=== PATIENT | female | born 1950 | race Caucasian/White ===

== ENCOUNTER → 2017-12-11 | Outpatient (CLI) | payer MEDICARE, OTHER ==
[~2017-12-11] MED LIST: IOHEXOL 180 MG/ML 10 ML VIAL.; methylPREDNISolone ACETATE 40 MG/ML VIAL.; methylPREDNISolone ACETATE 80 MG/ML VIAL.
== END ==
LOC: PNCL 09:48
DX: M51.16 Intervertebral disc disorders with radiculopathy, lumbar region (principal); E11.9 Type 2 diabetes mellitus without complications; M19.90 Unspecified osteoarthritis, unspecified site; M81.8 Other osteoporosis without current pathological fracture; Z87.891 Personal history of nicotine dependence; Z90.49 Acquired absence of other specified parts of digestive tract; Z98.890 Other specified postprocedural states
CPT/HCPCS: 62323; J1030; J1040; Q9965

== ENCOUNTER 2020-04-21 21:38 | Inpatient (IN) | payer MEDICARE, OTHER ==
[~2020-04-21] VITALS: Ht 162.6 cm; Wt 60.7 kg
[2020-04-21 21:30] VITALS: BP 144/68
[~2020-04-21 21:38] MED LIST changes: +ALPR0.5T PO; +ASPI-482 PO; +CALCIUM; +CYCL1DRO EACHEYE; +DEXA10VI8 IJ; +DULO30CA2 PO; +GABA-585 PO; +GLIP10TA13 PO; +GLUC1KIT IJ; +HYDR5TAB PO; -IOHEXOL 180 MG/ML 10 ML VIAL.; +LISI2.5T PO; +MAGN400C PO; +METF10007 PO; +MIDO5TAB4 PO; +MULT-18 PO; +ONDA4TAB12 PO; +SITA100T PO; +VIT D; +florinef; -methylPREDNISolone ACETATE 40 MG/ML VIAL.; -methylPREDNISolone ACETATE 80 MG/ML VIAL.
--- NOTE | 2020-04-21 22:00 | NUR ---
The patient, KATY ERNST, 69 y/o, F admitted by ANNALISA GROSS MD, was given written information regarding hospital policies, unit procedures and contact persons. nih completed. Valuables were checked and documented in emr. top and bottoms. pt called husbands to bring more items to her. lunchroom monitor applied and explained. lcrn
[2020-04-21] MEDS ORDERED: GLIP5TAB10 PO (22:45)
[2020-04-21 23:23] VITALS: BP 127/67
--- NOTE | 2020-04-22 01:59 | NUR ---
paged dr steinberg, pt is requesting her gabapentin and tylenow devyn xanax. her legs are killing her and she doest feel like she is in her own body she said.up set that meds werent ready when shearrived that other hospitals do that. explained pmc process. so therby calling what she needs now. lcrn
[2020-04-22] MEDS ORDERED: ASPIRIN RECTAL 300 MG SUPP. PR PRN (02:00)
[2020-04-22] MEDS ORDERED: DEXTROSE 50% 25 GM / 50ML DISP.SYRIN. IV PRN (02:00)
[2020-04-22] MEDS ORDERED: ACETAMINOPHEN 650 MG SUPP.RECT. PR PRN (02:00)
[2020-04-22] MEDS ORDERED: ALPRAZolam 0.5 MG TABLET PO PRN (02:00)
[2020-04-22] MEDS ORDERED: BISACODYL 5 MG TABLET.DR. PO PRN (02:00)
[2020-04-22] MEDS ORDERED: LABETALOL 20 MG/4 ML DISP.SYRIN. IVP PRN (02:00)
[2020-04-22] MEDS ORDERED: MAGNESIUM HYDROXIDE 2,400 MG/30 ML ORAL.SUSP. PO PRN (02:00)
--- NOTE | 2020-04-22 02:02 | NUR ---
pt s is bring in all her med bottles tomorrow due to pt cant remember all her meds or her doses. lcrn
[2020-04-22] MEDS ORDERED: FLUD0.1T PO (02:03)
[2020-04-22] MEDS ORDERED: HYDR5TAB11 PO (02:03)
[2020-04-22] MEDS ORDERED: GABAPENTIN 100 MG CAPSULE. PO ONE ×2 (02:30→03:00)
[2020-04-22] MEDS ORDERED: ALPRAZolam 0.25 MG TABLET PO ONE ×2 (02:30→03:00)
[2020-04-22] MEDS ORDERED: ACETAMINOPHEN 325 MG TABLET. PO ONE (02:30)
[2020-04-22] MEDS: ACETAMINOPHEN 325 MG TABLET. PO PRN ×2 (02:32→09:20)
[2020-04-22] MEDS: IV NORMAL SALINE 1000ML BAG 1,000 ML IV SCH ×3 (02:39→23:43)
--- NOTE | 2020-04-22 03:03 | NUR ---
pt received xanax 0.25+0.25 to =0.50 pt received neurotin 100 + 100 = 200mg marc assisted me with the confusion. there fore it isnt a scan err. lcrn
[2020-04-22 03:20] VITALS: BP 131/67
[2020-04-22 05:46] LABS: BASO # 0.1 x10^3/uL (0.0-0.2); BASO % 1 % (0-3); EOS # 0.3 x10^3/uL (0.0-0.7); EOS % 4 % (0-3); HEMATOCRIT 34.6 % (36.0-47.0); HEMOGLOBIN 11.3 g/dL (12.0-15.5); LYMPH % 25 % (24-48); MEAN CORPUSCULAR HEMOGLOBIN 28 pg (25-35); MEAN CORPUSCULAR HGB CONC 33 g/dL (31-37); MEAN CORPUSCULAR VOLUME 86 fL (79-100); MONO # 0.9 x10^3/uL (0.0-1.1); MONO % 11 % (0-9); NEUT # 4.9 x10^3/uL (1.8-7.7); NEUT % 60 % (31-73); PLATELET COUNT 354 x10^3/uL (140-400); RED BLOOD COUNT 4.02 x10^6/uL (3.50-5.40); RED CELL DISTRIBUTION WIDTH 14.9 % (11.5-14.5); WHITE BLOOD COUNT 8.2 x10^3/uL (4.0-11.0)
[2020-04-22 05:53] LABS: PROTHROMBIN TIME PATIENT 11.8 SEC (11.7-14.0)
[2020-04-22 06:09] LABS: ALBUMIN 2.9 g/dL (3.4-5.0); ALBUMIN/GLOBULIN RATIO 0.8 (1.0-1.7); CALCIUM 8.5 mg/dL (8.5-10.1); CHOLESTEROL/HDL RATIO 1.9; CREATININE 0.8 mg/dL (0.6-1.0); GFR 71.5; MAGNESIUM 1.7 mg/dL (1.8-2.4); PHOSPHORUS 4.3 mg/dL (2.6-4.7); POTASSIUM 3.5 mmol/L (3.5-5.1); TOTAL BILIRUBIN 0.2 mg/dL (0.2-1.0); TOTAL PROTEIN 6.7 g/dL (6.4-8.2)
[2020-04-22 07:00] VITALS: BP 119/61
[2020-04-22] MEDS ORDERED: INSULIN LISPRO 300 UNITS/3 ML VIAL. SQ SCH (07:30)
--- NOTE | 2020-04-22 08:12 | PDOC1 ---
History and Physical Date of Admission Date of Admission DATE: 04/22/20 TIME: 08:11 Identification/Chief Complaint Chief Complaint Left sided weakness Source Source: Patient History of Present Illness History of Present Illness Ms Hager is a 69-year-old female with PMH Pinal's disease, diabetes who presents with a chief complaint of weakness. Patient states on Thursday evening 04/18/2020 she developed left upper extremity weakness. 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 She states 04/20/2020 she began developing left lower extremity weakness. She states is been more difficult to walk. reports that prior to arrival the patient was found confused sitting down outside on a bench by her cousin and she did not know how she got there. He states that she is not acting like herself. She denies any history of stroke. She denies any chest pain or shortness of breath. She denies any vomiting. No recent hypoglycemia. denies any dysarthria, but she has had speech difficulties and has a cough sometimes after eating or drinking, which she feels is new. Denies any syncope or headaches. Denies any falls or head trauma. She does not take any blood thinners. She also notes that her left upper and lower extremity has decreased sensation to touch. On further review she and her note memory issues but is been progressive, they think this likely preceded Wednesdays event. He notes she frequently forgets conversations they have had as recently as 5 minutes ago. He feels as though she is acting like she is "drugged". On further review she notes frequently she has been having some urinary incontinence as well as fecal urgency, and with her memory issues and her bladder and bowel issues she has had less frequent social contact. She also notes an ongoing cough that is been bothering her for the past 3 months. She and her also noted insulin "allergy". When asked further about this she notes when she was hospitalized in [place] she received insulin and her blood glucose dropped to 13 and she was transferred to ICU. She did not experience any rash or hemodynamic instability, simply hypoglycemia. She was told by a physician at that time that she should "never take insulin again". Labs significant for NA 140, K3.5, CR 0.8, BUN 14, magnesium 1.7, WBC 8.2, Hb 11.3, platelets 354, troponin 0, albumin 2.9, LDL 37, TSH 0.762. EKG #1 with significant artifact. Repeat EKG consistent with normal sinus rhythm. Ventricular rate of 91 bpm. [place] normal. Intervals normal. Small Q waves in lead III and aVF. CT head shows mild small vessel ischemic change. CTA head and neck showed no large vessel occlusive disease, minimal plaque at the origin of the internal carotid arteries and cavernous segments of the internal carotid arteries bilaterally without significant stenosis. Chest x-ray with no acute process. Initial vital signs unremarkable. Notable blood glucose 354. She was given a full dose aspirin. Not a TPA candidate. Admitted for further care Past Medical History Endocrine: Diabetes Past Surgical History Past Surgical History: Cholecystectomy, Tonsillectomy, Other (Uretal stenting) Family History Family History: Diabetes, High Cholestrol, Hypertension Social History Smoke: Quit (2013) ALCOHOL: none Drugs: None Current Medications Current Medications Current Medications Sodium Chloride 1,000 ml @ 100 mls/hr Q10H IV Last administered on 04/22/20at 02:39; Start 04/22/20 at 02:00 Heparin Sodium (Porcine) (Heparin Sodium) 5,000 unit Q8HRS SQ ; Start 04/22/20 at 06:00 Labetalol HCl (Normodyne Iv Push) 10 mg PRN Q10MIN PRN IVP HYPERTENSION; Start 04/22/20 at 02:00 Atorvastatin Calcium (Lipitor) 80 mg HS PO ; Start 04/22/20 at 21:00 Acetaminophen (Tylenol) 650 mg PRN Q6HRS PRN PO TEMP > 100.4F Last administered on 04/22/20at 02:32; Start 04/22/20 at 02:00 Acetaminophen (Tylenol Supp) 650 mg PRN Q4HRS PRN OK TEMP > 100.4F; Start 04/22/20 at 02:00 Magnesium Hydroxide (Milk Of Magnesia) 2,400 mg PRN DAILY PRN PO CONSTIPATION; Start 04/22/20 at 02:00 Bisacodyl (Dulcolax Tab) 10 mg PRN DAILY PRN PO CONSTIPATION; Start 04/22/20 at 02:00 Famotidine (Pepcid) 20 mg BID PO ; Start 04/22/20 at 09:00 Aspirin (Ecotrin) 325 mg DAILYWBKFT PO ; Start 04/22/20 at 08:00 Aspirin (Aspirin Rectal Supp) 300 mg PRN DAILY PRN OK IF UNABLE TO TAKE PO; Start 04/22/20 at 02:00 Insulin Human Lispro (HumaLOG) 0-9 UNITS TIDACHC SQ ; Start 04/22/20 at 07:30; Stop 04/22/20 at 02:11; Status DC Dextrose (Dextrose 50%-Water Syringe) 12.5 gm PRN Q15MIN PRN IV SEE COMMENTS; Start 04/22/20 at 02:00 Alprazolam (Xanax) 0.5 mg PRN TID PRN PO ANXIETY Last administered on 04/22/20at 02:32; Start 04/22/20 at 02:00 Cyclosporine (Restasis) 1 drop BID OU ; Start 04/22/20 at 09:00 Duloxetine HCl (Cymbalta) 30 mg BID PO ; Start 04/22/20 at 09:00 Gabapentin (Neurontin) 200 mg TID PO Last administered on 04/22/20at 02:32; Start 04/22/20 at 09:00 Glipizide (Glucotrol) 5 mg BIDWMEALS PO ; Start 04/22/20 at 08:00 Lisinopril (Prinivil) 2.5 mg DAILY PO ; Start 04/22/20 at 09:00 Magnesium Oxide (Magnesium Oxide) 400 mg BID PO ; Start 04/22/20 at 09:00 Multivitamins (Thera M Plus) 1 tab DAILY PO ; Start 04/22/20 at 09:00 Linagliptin (Tradjenta) 5 mg DAILY PO ; Start 04/22/20 at 09:00 Fludrocortisone Acetate (Florinef) 0.1 mg DAILY PO ; Start 04/22/20 at 09:00 Hydrocortisone (Cortef) 5 mg DAILY PO ; Start 04/22/20 at 09:00 Gabapentin (Neurontin) 100 mg 1X ONCE PO Last administered on 04/22/20at 02:30; Start 04/22/20 at 02:30; Stop 04/22/20 at 02:31; Status DC Acetaminophen (Tylenol) 650 mg 1X ONCE PO Last administered on 04/22/20at 02:30; Start 04/22/20 at 02:30; Stop 04/22/20 at 02:31; Status DC Alprazolam (Xanax) 0.25 mg 1X ONCE PO Last administered on 04/22/20at 02:30; Start 04/22/20 at 02:30; Stop 04/22/20 at 02:31; Status DC Gabapentin (Neurontin) 100 mg 1X ONCE PO Last administered on 04/22/20at 03:00; Start 04/22/20 at 03:00; Stop 04/22/20 at 03:01; Status DC Alprazolam (Xanax) 0.25 mg 1X ONCE PO Last administered on 04/22/20at 03:00; Start 04/22/20 at 03:00; Stop 04/22/20 at 03:01; Status DC Magnesium Sulfate 50 ml @ 25 mls/hr 1X ONCE IV ; Start 04/22/20 at 08:15; Stop 04/22/20 at 10:14; Status UNV Potassium Chloride (Klor-Con) 20 meq 1X ONCE PO ; Start 04/22/20 at 08:15; Stop 04/22/20 at 08:16; Status UNV Active Scripts Active Reported Fludrocortisone Acetate 0.1 Mg Tablet 0.1 Mg PO DAILY 90 Days Hydrocortisone 5 Mg Tablet 5 Mg PO DAILY 90 Days Glipizide 5 Mg Tablet 1 Tab PO BID Magnesium (Magnesium Oxide) 400 Mg Capsule 1 Cap PO BID Lisinopril 2.5 Mg Tablet 1 Tab PO DAILY Gabapentin (Gabapentin) 100 Mg Capsule 200 Mg PO TID Cymbalta (Duloxetine Hcl) 30 Mg Capsule.dr 30 Mg PO BID Restasis (Cyclosporine) 1 Each Droperette 1 Drop EACHEYE BID [Vit D + Calcium] Daily Vitamin (Multivitamin) 1 Each Tablet 1 Each PO DAILY Metformin Hcl 1,000 Mg Tablet 1,000 Mg PO BID Januvia (Sitagliptin Phosphate) 100 Mg Tablet 100 Mg PO DAILY Midodrine Hcl 5 Mg Tablet 5 Mg PO BID [florinef] DAILY Glucagon Emergency Kit (Glucagon,Human Recombinant) 1 Mg Kit 1 Mg IJ PRN Xanax (Alprazolam) 0.5 Mg Tablet 0.5 Mg PO TID PRN PRN Allergies Allergies: Coded Allergies: Penicillins (Verified Allergy, Intermediate, 04/22/20) shots only Uncoded Allergies: insulin (Adverse Reaction, Unknown, 04/22/20) ROS General: YES: Fatigue, Malaise; No: Chills, Night Sweats, Appetite, Other PSYCHOLOGICAL ROS: YES: Anxiety, Behavioral Disorder, Concentration difficultie , Disorientation, Memory difficulties; No: Decreased libido, Depression, Hallucinations, Hostility, Irritablity, Mood Swings, Obsessive thoughts, Physical abuse, Sexual abuse, Sleep disturbances, Suicidal ideation, Other Eyes: No Blurry vision, No Decreased vision, No Double vision, No Dry eyes, No Excessive tearing, No Eye Pain, No Itchy Eyes, No Loss of vision, No Photophobia, No Scotomata, No Uses contacts, No Uses glasses, No Other HEENT: No: Heacaches, Visual Changes, Hearing change, Nasal congestion, Nasal discharge, Oral lesions, Sinus pain, Sore Throat, Epistaxis, Sneezing, Snoring, Tinnitus, Vertigo, Vocal changes, Other ALLERGY AND IMMUNOLOGY: No: Hives, Insect Bite Sensitivity, Itchy/Watery Eyes, Nasal Congestion, Post Nasal Drip, Seasonal Allergies, Other Hematological and Lymphatic: No: Bleeding Problems, Blood Clots, Blood Transfusions, Brusing, Night Sweats, Pallor, Swollen Lymph Nodes, Other ENDOCRINE: No: Breast Changes, Galactorrhea, Hair Pattern Changes, Hot Flashes, Malaise/lethargy, Mood Swings, Palpitations, Polydipsia/polyuria, Skin Changes, Temperature Intolerance, Unexpected Weight Changes, Other Breast: No New/Changing Breast Lumps, No Nipple changes, No Nipple discharge, No Other Respiratory: YES: Cough; No: Hemoptysis, Orthopnea, Pleuritic Pain, Shortness of breath, SOB with excertion, Sputum Changes, Stridor, Tachypnea, Wheezing, Other Cardiovascular: No Chest Pain, No Palpitations, No Orthopnea, No Paroxysmal Noc. Dyspnea, No Edema, No Lt Headedness, No Other Gastrointestinal: No Nausea, No Vomiting, No Abdominal Pain, No Diarrhea, No Constipation, No Melena, No Hematochezia, No Other Genitourinary: No Dysuria, No Frequency, No Incontinence, No Hematuria, No Retention, No Discharge, No Urgency, No Pain, No Flank Pain, No Other, No , No , No , No , No , No , No Musculoskeletal: Yes Gait Disturbance, Yes Muscular Weakness; No Joint Pain, No Joint Stiffness, No Joint Swelling, No Muscle Pain, No Pain In:, No Swelling In:, No Other Neurological: Yes Gait Disturbance, Yes Impaired Coord/balance, Yes Memory Loss , Yes Numbness/Tingling, Yes Speech Problems; No Behavorial Changes, No Bowel/Bladder ControlChng, No Confusion, No Dizzin ess, No Headaches, No Seizures, No Tremors, No Visual Changes, No Weakness, No Other Skin: No Dry Skin, No Eczema, No Hair Changes, No Lumps, No Mole Changes, No Mottling, No Nail Changes, No Pruritus, No Rash, No Skin Lesion Changes, No Other, No Acne Physical Exam General: Alert, Cooperative, No acute distress HEENT: PERRLA Lungs: Clear to auscultation, Normal air movement Heart: S1S2, RRR, no thrills, no rubs, no gallops, no murmurs Abdomen: Normal bowel sounds, Soft, No tenderness, No hepatosplenomegaly, No masses Rectal Exam: not examined Extremities: No clubbing, No cyanosis, No edema, Normal pulses, No tenderness/swelling Skin: No rashes, No breakdown, No significant lesion Neuro: Normal speech, Normal tone, Cranial nerves 3-12 NL, Reflexes 2+, Other (Neurologic: Alert with intact cognitive function. No aphasia, dysarthria, or neglect. GCS 15. Pupils 3 mm briskly reactive b/l. No APD present. Cranial nerves 2-12 grossly intact; no facial asymmetry present, tongue midline, shoulder shrugging less on the left. Strength 3/5 on the left upper extremity and 4 out of 5 on the left lower extremity. Plus 5 out of 5 in the right upper and right lower extremities. Light touch sensation decreased in the left upper extremity. Cerebellar testing appropriate without evidence of dysdia dochokinesia. DTR's 2+ in all 4 extremities. Slight pronator drift on the left. Gait unsteady) Psych/Mental Status: Mental status NL, Mood NL Vitals Vitals Vital Signs Date Time Temp Pulse Resp B/P (MAP) Pulse Ox O2 Delivery O2 Flow Rate FiO2 04/22/20 07:00 97.6 89 18 119/61 (80) 93 Room Air 97.6 Labs Labs Laboratory Tests Test 04/22/20 04:35 04/22/20 07:29 White Blood Count 8.2 x10^3/uL (4.0-11.0) Red Blood Count 4.02 x10^6/uL (3.50-5.40) Hemoglobin 11.3 g/dL (12.0-15.5) Hematocrit 34.6 % (36.0-47.0) Mean Corpuscular Volume 86 fL (79-100) Mean Corpuscular Hemoglobin 28 pg (25-35) Mean Corpuscular Hemoglobin Concent 33 g/dL (31-37) Red Cell Distribution Width 14.9 % (11.5-14.5) Platelet Count 354 x10^3/uL (140-400) Neutrophils (%) (Auto) 60 % (31-73) Lymphocytes (%) (Auto) 25 % (24-48) Monocytes (%) (Auto) 11 % (0-9) Eosinophils (%) (Auto) 4 % (0-3) Basophils (%) (Auto) 1 % (0-3) Neutrophils # (Auto) 4.9 x10^3/uL (1.8-7.7) Lymphocytes # (Auto) 2.0 x10^3/uL (1.0-4.8) Monocytes # (Auto) 0.9 x10^3/uL (0.0-1.1) Eosinophils # (Auto) 0.3 x10^3/uL (0.0-0.7) Basophils # (Auto) 0.1 x10^3/uL (0.0-0.2) Prothrombin Time 11.8 SEC (11.7-14.0) Prothromb Time International Ratio 0.9 (0.8-1.1) Sodium Level 140 mmol/L (136-145) Potassium Level 3.5 mmol/L (3.5-5.1) Chloride Level 103 mmol/L (98-107) Carbon Dioxide Level 30 mmol/L (21-32) Anion Gap 7 (6-14) Blood Urea Nitrogen 14 mg/dL (7-20) Creatinine 0.8 mg/dL (0.6-1.0) Estimated GFR (Cockcroft-Gault) 71.5 BUN/Creatinine Ratio 18 (6-20) Glucose Level 94 mg/dL (70-99) Calcium Level 8.5 mg/dL (8.5-10.1) Phosphorus Level 4.3 mg/dL (2.6-4.7) Magnesium Level 1.7 mg/dL (1.8-2.4) Total Bilirubin 0.2 mg/dL (0.2-1.0) Aspartate Amino Transf (AST/SGOT) 13 U/L (15-37) Alanine Aminotransferase (ALT/SGPT) 15 U/L (14-59) Alkaline Phosphatase 69 U/L (46-116) Troponin I Quantitative < 0.017 ng/mL (0.000-0.055) Total Protein 6.7 g/dL (6.4-8.2) Albumin 2.9 g/dL (3.4-5.0) Albumin/Globulin Ratio 0.8 (1.0-1.7) Triglycerides Level 135 mg/dL (0-150) Cholesterol Level 132 mg/dL (0-200) LDL Cholesterol, Calculated 37 mg/dL (0-100) VLDL Cholesterol, Calculated 27 mg/dL (0-40) Non-HDL Cholesterol Calculated 64 mg/dL (0-129) HDL Cholesterol 68 mg/dL (40-60) Cholesterol/HDL Ratio 1.9 Thyroid Stimulating Hormone (TSH) 0.762 uIU/mL (0.358-3.74) Glucose (Fingerstick) 89 mg/dL (70-99) Laboratory Tests Test 04/22/20 04:35 04/22/20 07:29 White Blood Count 8.2 x10^3/uL (4.0-11.0) Red Blood Count 4.02 x10^6/uL (3.50-5.40) Hemoglobin 11.3 g/dL (12.0-15.5) Hematocrit 34.6 % (36.0-47.0) Mean Corpuscular Volume 86 fL (79-100) Mean Corpuscular Hemoglobin 28 pg (25-35) Mean Corpuscular Hemoglobin Concent 33 g/dL (31-37) Red Cell Distribution Width 14.9 % (11.5-14.5) Platelet Count 354 x10^3/uL (140-400) Neutrophils (%) (Auto) 60 % (31-73) Lymphocytes (%) (Auto) 25 % (24-48) Monocytes (%) (Auto) 11 % (0-9) Eosinophils (%) (Auto) 4 % (0-3) Basophils (%) (Auto) 1 % (0-3) Neutrophils # (Auto) 4.9 x10^3/uL (1.8-7.7) Lymphocytes # (Auto) 2.0 x10^3/uL (1.0-4.8) Monocytes # (Auto) 0.9 x10^3/uL (0.0-1.1) Eosinophils # (Auto) 0.3 x10^3/uL (0.0-0.7) Basophils # (Auto) 0.1 x10^3/uL (0.0-0.2) Prothrombin Time 11.8 SEC (11.7-14.0) Prothromb Time International Ratio 0.9 (0.8-1.1) Sodium Level 140 mmol/L (136-145) Potassium Level 3.5 mmol/L (3.5-5.1) Chloride Level 103 mmol/L (98-107) Carbon Dioxide Level 30 mmol/L (21-32) Anion Gap 7 (6-14) Blood Urea Nitrogen 14 mg/dL (7-20) Creatinine 0.8 mg/dL (0.6-1.0) Estimated GFR (Cockcroft-Gault) 71.5 BUN/Creatinine Ratio 18 (6-20) Glucose Level 94 mg/dL (70-99) Calcium Level 8.5 mg/dL (8.5-10.1) Phosphorus Level 4.3 mg/dL (2.6-4.7) Magnesium Level 1.7 mg/dL (1.8-2.4) Total Bilirubin 0.2 mg/dL (0.2-1.0) Aspartate Amino Transf (AST/SGOT) 13 U/L (15-37) Alanine Aminotransferase (ALT/SGPT) 15 U/L (14-59) Alkaline Phosphatase 69 U/L (46-116) Troponin I Quantitative < 0.017 ng/mL (0.000-0.055) Total Protein 6.7 g/dL (6.4-8.2) Albumin 2.9 g/dL (3.4-5.0) Albumin/Globulin Ratio 0.8 (1.0-1.7) Triglycerides Level 135 mg/dL (0-150) Cholesterol Level 132 mg/dL (0-200) LDL Cholesterol, Calculated 37 mg/dL (0-100) VLDL Cholesterol, Calculated 27 mg/dL (0-40) Non-HDL Cholesterol Calculated 64 mg/dL (0-129) HDL Cholesterol 68 mg/dL (40-60) Cholesterol/HDL Ratio 1.9 Thyroid Stimulating Hormone (TSH) 0.762 uIU/mL (0.358-3.74) Glucose (Fingerstick) 89 mg/dL (70-99) Images Images CT Head w/o contrast: No focal parenchymal lesion or hemorrhage is identified. There is no midline shift or sulcal effacement. Patchy hypodensity in the periventricular white matter. Zuleta-white distinction is preserved. The ventricular system is within normal limits without compression hydrocephalus. The basal cisterns are well maintained. The visualized portions of the paranasal sinuses and mastoid air cells are well- pneumatized. No acute fractures. IMPRESSION: Mild small vessel ischemic change, technically age indeterminate without prior imaging. CTA head and neck CTA neck: Visualized portion of thoracic aorta are unremarkable. Standard three-vessel aortic arch anatomy. Right common carotid artery is patent without evidence of stenosis, occlusion or aneurysm. Mild calcified plaque at the origin of the right internal carotid artery without significant stenosis. Left common carotid artery is patent without evidence of stenosis, occlusion or aneurysm. Minimal plaque at the origin of the left internal carotid artery without significant stenosis. Right vertebral artery is patent to basilar confluence without evidence of stenosis, occlusion or aneurysm. Left vertebral artery is patent to basilar confluence without evidence of stenosis, occlusion or aneurysm. Visualized soft tissues are unremarkable. CTA HEAD: Minimal plaque at the origin of the right internal carotid artery without significant stenosis. Right MCA is patent. Right HIRAL is patent. Minimal plaque at the cavernous segment of the left internal carotid artery without significant stenosis. Left MCA is patent. Left HIRAL is patent. Basilar artery is patent without evidence of stenosis, occlusion or aneurysm. cable armorer are patent bilaterally. origin of the right PARKING CONTROL OFFICER. IMPRESSION: 1. No large vessel occlusion. 2. Minimal plaque at the origin of the internal carotid arteries and cavernous segments of the internal carotid arteries bilaterally without significant stenosis. VTE Prophylaxis Ordered VTE Prophylaxis Devices: No VTE Pharmacological Prophylaxi: Yes Assessment/Plan Assessment/Plan A/P: Left-sided weakness -exhibit signs and symptoms of acute right frontoparietal CVA. Will order MRI. Consult neurology. PT OT [employer] eval. ASA and high intensity statin. Goal glucose less than 140 mg/Raghav, check A1c. Control BP. Tele to observe for arrhythmia. Uncontrolled diabetes mellitus - Refuses insulin therapy. Hold metformin for recent contrast administration. Can continue glipizide. Acute encephalopathy - possibly with underlying mild cognitive impairment. 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
[2020-04-22] MEDS ORDERED: POTASSIUM CHLORIDE 20 MEQ TABLET.ER. PO ONE (08:15)
[2020-04-22] MEDS ORDERED: MAGNESIUM SULFATE 2GM 50 ML IV ONE (08:15)
[2020-04-22] MEDS: HEPARIN for SUB-Q USE 5,000 UNIT/ML VIAL. SQ SCH ×3 (08:42→21:24)
[2020-04-22] MEDS ORDERED: LISINOPRIL 5 MG TABLET. PO SCH (09:00)
[2020-04-22] MEDS ORDERED: HYDROCORTISONE 10 MG TABLET PO SCH ×2 (09:00→21:00)
[2020-04-22] MEDS ORDERED: GABAPENTIN 100 MG CAPSULE. PO SCH (09:00)
[2020-04-22] MEDS: FLUDROCORTISONE 0.1 MG TABLET PO SCH (09:19)
[2020-04-22] MEDS: DULoxetine HCL 30 MG CAPSULE.DR PO SCH ×2 (09:20→20:29)
[2020-04-22] MEDS: ASPIRIN ENTERIC COATED 325 MG TABLET.DR. PO SCH (09:20)
[2020-04-22] MEDS: MULTIVITAMIN with MINERAL TABLET. PO SCH (09:20)
[2020-04-22] MEDS: glipiZIDE 5 MG TABLET PO SCH ×2 (09:20→17:14)
[2020-04-22] MEDS: FAMOTIDINE 20 MG TABLET. PO SCH ×2 (09:20→20:29)
[2020-04-22] MEDS: MAGNESIUM OXIDE 400 MG TABLET PO SCH ×2 (09:21→20:29)
[2020-04-22] MEDS: LINAGLIPTIN 5 MG TABLET PO SCH (09:21)
[2020-04-22] MEDS: cycloSPORINE 0.05% OPHTH DROPERETTE. OU SCH ×2 (09:21→21:19)
[2020-04-22 10:52] VITALS: BP 118/64
[2020-04-22] MEDS ORDERED: ALPRAZolam 0.25 MG TABLET PO PRN (11:15)
[2020-04-22 15:00] VITALS: BP 141/61
[2020-04-22 19:35] VITALS: BP 145/76
--- NOTE | 2020-04-22 19:54 | PDOC2 ---
CONSULT Date of Consult Date of Consult DATE: 04/22/20 TIME: 19:52 Reason for Consult Reason for Consult: left side weakness History of Present Illness Reason for Visit: This patient is 71-year-old woman with past medical history of multiple medical problems patient presented with not feeling well for over 3-day duration patient was having some left-sided weakness she was having difficulty with gait and balance. Patient was also having some episode of confusion she has underlying memory problems. Patient currently denies any complaint of difficulty speaking tingling numbness on the face. Patient denies any complaint of chest pain shortness of breath fever. Patient was transferred from outside facility for further workup. Past Medical History Endocrine: Diabetes Past Surgical History Past Surgical History: Cholecystectomy, Tonsillectomy, Other (Uretal stenting) Family History Family History: Diabetes, High Cholestrol, Hypertension Social History Quit (2013) ALCOHOL: none Drugs: None Current Medications Current Medications Current Medications Sodium Chloride 1,000 ml @ 100 mls/hr Q10H IV Last administered on 04/22/20at 14:46; Start 04/22/20 at 02:00 Heparin Sodium (Porcine) (Heparin Sodium) 5,000 unit Q8HRS SQ Last administered on 04/22/20at 14:49; Start 04/22/20 at 06:00 Labetalol HCl (Normodyne Iv Push) 10 mg PRN Q10MIN PRN IVP HYPERTENSION; Start 04/22/20 at 02:00 Atorvastatin Calcium (Lipitor) 80 mg HS PO ; Start 04/22/20 at 21:00 Acetaminophen (Tylenol) 650 mg PRN Q6HRS PRN PO TEMP > 100.4F Last administered on 04/22/20at 09:20; Start 04/22/20 at 02:00 Acetaminophen (Tylenol Supp) 650 mg PRN Q4HRS PRN ME TEMP > 100.4F; Start 04/22/20 at 02:00 Magnesium Hydroxide (Milk Of Magnesia) 2,400 mg PRN DAILY PRN PO CONSTIPATION, 1st CHOICE; Start 04/22/20 at 02:00 Bisacodyl (Dulcolax Tab) 10 mg PRN DAILY PRN PO CONSTIPATION; Start 04/22/20 at 02:00 Famotidine (Pepcid) 20 mg BID PO Last administered on 04/22/20at 09:20; Start 04/22/20 at 09:00 Aspirin (Ecotrin) 325 mg DAILYWBKFT PO Last administered on 04/22/20at 09:20; Start 04/22/20 at 08:00 Aspirin (Aspirin Rectal Supp) 300 mg PRN DAILY PRN ME IF UNABLE TO TAKE PO; Start 04/22/20 at 02:00 Insulin Human Lispro (HumaLOG) 0-9 UNITS TIDACHC SQ ; Start 04/22/20 at 07:30; Stop 04/22/20 at 02:11; Status DC Dextrose (Dextrose 50%-Water Syringe) 12.5 gm PRN Q15MIN PRN IV SEE COMMENTS; Start 04/22/20 at 02:00 Alprazolam (Xanax) 0.5 mg PRN TID PRN PO ANXIETY Last administered on 04/22/20at 02:32; Start 04/22/20 at 02:00; Stop 04/22/20 at 11:09; Status DC Cyclosporine (Restasis) 1 drop BID OU Last administered on 04/22/20 09:21; Start 04/22/20 at 09:00 Duloxetine HCl (Cymbalta) 30 mg BID PO Last administered on 04/22/20 09:20; Start 04/22/20 at 09:00 Gabapentin (Neurontin) 200 mg TID PO Last administered on 04/22/20at 02:32; Start 04/22/20 at 09:00; Stop 04/22/20 at 11:09; Status DC Glipizide (Glucotrol) 5 mg BIDWMEALS PO Last administered on 04/22/20at 17:14; Start 04/22/20 at 08:00 Lisinopril (Prinivil) 2.5 mg DAILY PO Last administered on 04/22/20 09:20; Start 04/22/20 at 09:00; Stop 04/22/20 at 11:10; Status DC Magnesium Oxide (Magnesium Oxide) 400 mg BID PO Last administered on 04/22/20 09:21; Start 04/22/20 at 09:00 Multivitamins (Thera M Plus) 1 tab DAILY PO Last administered on 04/22/20 09:20; Start 04/22/20 at 09:00 Linagliptin (Tradjenta) 5 mg DAILY PO Last administered on 8/9/20at 09:21; Start 04/22/20 at 09:00 Fludrocortisone Acetate (Florinef) 0.1 mg DAILY PO Last administered on 04/22/20at 09:19; Start 04/22/20 at 09:00 Hydrocortisone (Cortef) 5 mg DAILY PO Last administered on 04/22/20at 09:21; Start 04/22/20 at 09:00 Gabapentin (Neurontin) 100 mg 1X ONCE PO Last administered on 04/22/20at 02:30; Start 04/22/20 at 02:30; Stop 04/22/20 at 02:31; Status DC Acetaminophen (Tylenol) 650 mg 1X ONCE PO Last administered on 04/22/20at 02:30; Start 04/22/20 at 02:30; Stop 04/22/20 at 02:31; Status DC Alprazolam (Xanax) 0.25 mg 1X ONCE PO Last administered on 04/22/20at 02:30; Start 04/22/20 at 02:30; Stop 04/22/20 at 02:31; Status DC Gabapentin (Neurontin) 100 mg 1X ONCE PO Last administered on 04/22/20at 03:00; Start 04/22/20 at 03:00; Stop 04/22/20 at 03:01; Status DC Alprazolam (Xanax) 0.25 mg 1X ONCE PO Last administered on 04/22/20at 03:00; Start 04/22/20 at 03:00; Stop 04/22/20 at 03:01; Status DC Magnesium Sulfate 50 ml @ 25 mls/hr 1X ONCE IV Last administered on 04/22/20at 09:21; Start 04/22/20 at 08:15; Stop 04/22/20 at 10:14; Status DC Potassium Chloride (Klor-Con) 20 meq 1X ONCE PO Last administered on 04/22/20at 09:20; Start 04/22/20 at 08:15; Stop 04/22/20 at 08:16; Status DC Alprazolam (Xanax) 0.25 mg PRN DAILY PRN PO ANXIETY / AGITATION; Start 04/22/20 at 11:15 Active Scripts Active Reported Fludrocortisone Acetate 0.1 Mg Tablet 0.1 Mg PO DAILY 90 Days Hydrocortisone 5 Mg Tablet 5 Mg PO DAILY 90 Days Glipizide 5 Mg Tablet 1 Tab PO BID Magnesium (Magnesium Oxide) 400 Mg Capsule 1 Cap PO BID Lisinopril 2.5 Mg Tablet 1 Tab PO DAILY Gabapentin (Gabapentin) 100 Mg Capsule 200 Mg PO TID Cymbalta (Duloxetine Hcl) 30 Mg Capsule.dr 30 Mg PO BID Restasis (Cyclosporine) 1 Each Droperette 1 Drop EACHEYE BID [Vit D + Calcium] Daily Vitamin (Multivitamin) 1 Each Tablet 1 Each PO DAILY Metformin Hcl 1,000 Mg Tablet 1,000 Mg PO BID Januvia (Sitagliptin Phosphate) 100 Mg Tablet 100 Mg PO DAILY Midodrine Hcl 5 Mg Tablet 5 Mg PO BID [florinef] DAILY Glucagon Emergency Kit (Glucagon,Human Recombinant) 1 Mg Kit 1 Mg IJ PRN Xanax (Alprazolam) 0.5 Mg Tablet 0.5 Mg PO TID PRN PRN Allergies Allergies: Coded Allergies: Penicillins (Verified Allergy, Intermediate, 04/22/20) shots only Insulins (Verified Adverse Reaction, Intermediate, RAPID DROP IN BLOOD SUGARS, 04/22/20) PROVIDER IN [place] TOLD HER TO "never take insulin again" Physical Exam Physical Exam General no acute distress. HEENT: Normocephalic and atraumatic. NECK: Supple without bruit Respiratory: Clear to auscultation bilaterally Heart: Regular rate and rhythm, S1S2 normal NEUROLOGIC: Mental status Alert oriented. Cranial nerve equally reactive pupils, and intact extraocular movements. No facial asymmetry. Palate elevates and tongue protrudes in midline. Reflexes are 1-2 with flexor plantar responses. Coordination no dysmetria Strength able to move all exts left side weakness Sensory exam is intact for light touch and pinprick dec on left side compared to right. Gait in bed. Vitals VITALS Vital Signs Date Time Temp Pulse Resp B/P (MAP) Pulse Ox O2 Delivery O2 Flow Rate FiO2 04/22/20 15:00 97.6 84 16 141/61 (87) 95 Room Air 97.6 Labs Labs Laboratory Tests Test 04/22/20 04:35 04/22/20 07:29 04/22/20 12:19 04/22/20 17:20 White Blood Count 8.2 x10^3/uL (4.0-11.0) Red Blood Count 4.02 x10^6/uL (3.50-5.40) Hemoglobin 11.3 g/dL (12.0-15.5) Hematocrit 34.6 % (36.0-47.0) Mean Corpuscular Volume 86 fL (79-100) Mean Corpuscular Hemoglobin 28 pg (25-35) Mean Corpuscular Hemoglobin Concent 33 g/dL (31-37) Red Cell Distribution Width 14.9 % (11.5-14.5) Platelet Count 354 x10^3/uL (140-400) Neutrophils (%) (Auto) 60 % (31-73) Lymphocytes (%) (Auto) 25 % (24-48) Monocytes (%) (Auto) 11 % (0-9) Eosinophils (%) (Auto) 4 % (0-3) Basophils (%) (Auto) 1 % (0-3) Neutrophils # (Auto) 4.9 x10^3/uL (1.8-7.7) Lymphocytes # (Auto) 2.0 x10^3/uL (1.0-4.8) Monocytes # (Auto) 0.9 x10^3/uL (0.0-1.1) Eosinophils # (Auto) 0.3 x10^3/uL (0.0-0.7) Basophils # (Auto) 0.1 x10^3/uL (0.0-0.2) Prothrombin Time 11.8 SEC (11.7-14.0) Prothromb Time International Ratio 0.9 (0.8-1.1) Sodium Level 140 mmol/L (136-145) Potassium Level 3.5 mmol/L (3.5-5.1) Chloride Level 103 mmol/L (98-107) Carbon Dioxide Level 30 mmol/L (21-32) Anion Gap 7 (6-14) Blood Urea Nitrogen 14 mg/dL (7-20) Creatinine 0.8 mg/dL (0.6-1.0) Estimated GFR (Cockcroft-Gault) 71.5 BUN/Creatinine Ratio 18 (6-20) Glucose Level 94 mg/dL (70-99) Calcium Level 8.5 mg/dL (8.5-10.1) Phosphorus Level 4.3 mg/dL (2.6-4.7) Magnesium Level 1.7 mg/dL (1.8-2.4) Total Bilirubin 0.2 mg/dL (0.2-1.0) Aspartate Amino Transf (AST/SGOT) 13 U/L (15-37) Alanine Aminotransferase (ALT/SGPT) 15 U/L (14-59) Alkaline Phosphatase 69 U/L (46-116) Troponin I Quantitative < 0.017 ng/mL (0.000-0.055) Total Protein 6.7 g/dL (6.4-8.2) Albumin 2.9 g/dL (3.4-5.0) Albumin/Globulin Ratio 0.8 (1.0-1.7) Triglycerides Level 135 mg/dL (0-150) Cholesterol Level 132 mg/dL (0-200) LDL Cholesterol, Calculated 37 mg/dL (0-100) VLDL Cholesterol, Calculated 27 mg/dL (0-40) Non-HDL Cholesterol Calculated 64 mg/dL (0-129) HDL Cholesterol 68 mg/dL (40-60) Cholesterol/HDL Ratio 1.9 Thyroid Stimulating Hormone (TSH) 0.762 uIU/mL (0.358-3.74) Glucose (Fingerstick) 89 mg/dL (70-99) 90 mg/dL (70-99) 120 mg/dL (70-99) Laboratory Tests Test 04/22/20 04:35 04/22/20 07:29 04/22/20 12:19 04/22/20 17:20 White Blood Count 8.2 x10^3/uL (4.0-11.0) Red Blood Count 4.02 x10^6/uL (3.50-5.40) Hemoglobin 11.3 g/dL (12.0-15.5) Hematocrit 34.6 % (36.0-47.0) Mean Corpuscular Volume 86 fL (79-100) Mean Corpuscular Hemoglobin 28 pg (25-35) Mean Corpuscular Hemoglobin Concent 33 g/dL (31-37) Red Cell Distribution Width 14.9 % (11.5-14.5) Platelet Count 354 x10^3/uL (140-400) Neutrophils (%) (Auto) 60 % (31-73) Lymphocytes (%) (Auto) 25 % (24-48) Monocytes (%) (Auto) 11 % (0-9) Eosinophils (%) (Auto) 4 % (0-3) Basophils (%) (Auto) 1 % (0-3) Neutrophils # (Auto) 4.9 x10^3/uL (1.8-7.7) Lymphocytes # (Auto) 2.0 x10^3/uL (1.0-4.8) Monocytes # (Auto) 0.9 x10^3/uL (0.0-1.1) Eosinophils # (Auto) 0.3 x10^3/uL (0.0-0.7) Basophils # (Auto) 0.1 x10^3/uL (0.0-0.2) Prothrombin Time 11.8 SEC (11.7-14.0) Prothromb Time International Ratio 0.9 (0.8-1.1) Sodium Level 140 mmol/L (136-145) Potassium Level 3.5 mmol/L (3.5-5.1) Chloride Level 103 mmol/L (98-107) Carbon Dioxide Level 30 mmol/L (21-32) Anion Gap 7 (6-14) Blood Urea Nitrogen 14 mg/dL (7-20) Creatinine 0.8 mg/dL (0.6-1.0) Estimated GFR (Cockcroft-Gault) 71.5 BUN/Creatinine Ratio 18 (6-20) Glucose Level 94 mg/dL (70-99) Calcium Level 8.5 mg/dL (8.5-10.1) Phosphorus Level 4.3 mg/dL (2.6-4.7) Magnesium Level 1.7 mg/dL (1.8-2.4) Total Bilirubin 0.2 mg/dL (0.2-1.0) Aspartate Amino Transf (AST/SGOT) 13 U/L (15-37) Alanine Aminotransferase (ALT/SGPT) 15 U/L (14-59) Alkaline Phosphatase 69 U/L (46-116) Troponin I Quantitative < 0.017 ng/mL (0.000-0.055) Total Protein 6.7 g/dL (6.4-8.2) Albumin 2.9 g/dL (3.4-5.0) Albumin/Globulin Ratio 0.8 (1.0-1.7) Triglycerides Level 135 mg/dL (0-150) Cholesterol Level 132 mg/dL (0-200) LDL Cholesterol, Calculated 37 mg/dL (0-100) VLDL Cholesterol, Calculated 27 mg/dL (0-40) Non-HDL Cholesterol Calculated 64 mg/dL (0-129) HDL Cholesterol 68 mg/dL (40-60) Cholesterol/HDL Ratio 1.9 Thyroid Stimulating Hormone (TSH) 0.762 uIU/mL (0.358-3.74) Glucose (Fingerstick) 89 mg/dL (70-99) 90 mg/dL (70-99) 120 mg/dL (70-99) Assessment/Plan Assessment/Plan This patient is 71-year-old woman with past medical history of multiple medical problems patient presented with not feeling well for over 3-day duration patient was having some left-sided weakness she was having difficulty with gait and balance. Patient was also having some episode of confusion she has underlying memory problems. Patient currently denies any complaint of difficulty speaking tingling numbness on the face. Patient denies any complaint of chest pain shortness of breath fever. Patient was transferred from outside facility for further workup. Will get further stroke workup. Patient did not meet criteria for IV t-PA. Patient had a CT scan done brain did not show any evidence of acute intracranial etiology no evidence of acute hemorrhage or mass changes noted for chronic small vessel ischemic disease. Patient did not have any large vessel occlusion CTA head and neck was done. Will get MRI of brain to further evaluate for any acute intracranial etiology Continue aspirin for stroke prevention. PT OT speech evaluation. Attention continue treat and monitor. Diabetes continue treat and monitor. Continue medical management. Plan discussed at length KONSTANTIN DELANEY MD Apr 22, 2020 19:54
[2020-04-22] MEDS ORDERED: ATORVASTATIN CALCIUM 40 MG TABLET. PO SCH (21:00)
[2020-04-22 23:25] VITALS: BP 155/74
[2020-04-23 03:05] VITALS: BP 140/67
[2020-04-23 03:08] LABS: HEMOGLOBIN A1C 11.4 % (4.8-5.6)
[2020-04-23] MEDS: HEPARIN for SUB-Q USE 5,000 UNIT/ML VIAL. SQ SCH ×2 (06:38→14:00)
[2020-04-23 07:00] VITALS: BP 122/69
[2020-04-23] MEDS: IV NORMAL SALINE 1000ML BAG 1,000 ML IV SCH ×2 (08:00→08:24)
[2020-04-23] MEDS: FLUDROCORTISONE 0.1 MG TABLET PO SCH (08:23)
[2020-04-23] MEDS: LINAGLIPTIN 5 MG TABLET PO SCH (08:23)
[2020-04-23] MEDS: MULTIVITAMIN with MINERAL TABLET. PO SCH (08:23)
[2020-04-23] MEDS: FAMOTIDINE 20 MG TABLET. PO SCH (08:23)
[2020-04-23] MEDS: MAGNESIUM OXIDE 400 MG TABLET PO SCH (08:23)
[2020-04-23] MEDS: ASPIRIN ENTERIC COATED 325 MG TABLET.DR. PO SCH (08:23)
[2020-04-23] MEDS: DULoxetine HCL 30 MG CAPSULE.DR PO SCH (08:24)
[2020-04-23] MEDS: cycloSPORINE 0.05% OPHTH DROPERETTE. OU SCH (08:24)
[2020-04-23] MEDS: glipiZIDE 5 MG TABLET PO SCH ×2 (08:24→17:45)
[2020-04-23] MEDS ORDERED: diazePAM 5 MG TABLET PO ONE (08:30)
[2020-04-23] MEDS ORDERED: HYDROCORTISONE 10 MG TABLET PO SCH (09:00)
--- NOTE | 2020-04-23 09:56 | RAD ---
MRI Brain without contrast History:Left side weakness Technique: Multiplanar, multisequential noncontrast MR imaging was performed of the brain. Comparison: None available Findings: There is motion degradation. There is an approximate 7 mm AP by 3 mm transverse focus of restricted diffusion of the right paracentral gopal.Ventricular size is within normal limits. There is [id number] supratentorial involutional change. There is minimal T2 and FLAIR hyperintense signal abnormality of the supratentorial periventricular white matter bilaterally, also moderate signal abnormality of the gopal. There is old right cerebellar lacunar infarct.There is no significant midline shift, intraaxial mass effect, or focal abnormal extra-axial fluid collection. There is preservation of the major intracranial flow-voids at the skull base. The cerebellar tonsils are normal in location. There is no significant abnormality of the pineal gland or pituitary gland. There is complete opacification of the left sphenoid sinus with heterogeneous signal characteristics also opacification of posterior left ethmoid air cells also with heterogeneous signal features and some bowing of the adjacent ruano. There is moderate patchy fluid and thickening of the left mastoid air cells, very minimally on the right.There is preserved marrow signal of the clivus. There has been lens surgery bilaterally. Impression: 1. There is acute infarct of the right gopal. 2. T2 and FLAIR hyperintense signal abnormality of the gopal and minimally of the supratentorial parenchyma is nonspecific, probably due to chronic microvascular ischemic disease. There is old right cerebellar lacunar infarct. 3. There is complete opacification of the left sphenoid sinus with heterogeneous signal features as may be seen with inspissated debris/mucous. There is also opacification of posterior left ethmoid air cells with heterogeneous signal features and some bowing of the adjacent ruano, cannot exclude underlying mass. Critcal Results were discussed with patient's nurse Yesica at 04/23/2020 9:49 AM, to inform doctor of findings. Electronically signed by: Sonny Jacobs MD (04/23/2020 9:53 AM) [id number]
--- NOTE | 2020-04-23 10:15 | PDOC ---
PROGRESS NOTES Assessment Right pontine lacunar stroke, already on aspirin and statin Possible sinus lesion Plan Probably can go home with outpatient therapy, stroke happened 5 days ago, not a candidate for Alteplace Continue aspirin and statin Outpatient ENT workup regarding the sinus lesion Subjective Wants to go home with outpatient therapy Objective Vital Signs Date Time Temp Pulse Resp B/P (MAP) Pulse Ox O2 Delivery O2 Flow Rate FiO2 04/23/20 07:00 98.3 93 20 122/69 (86) 94 Room Air 98.3 Intake and Output 04/23/20 07:00 Intake Total 680 ml Balance 680 ml Intake Oral 680 ml # Voids 5 # Bowel Movements 1 PHYSICAL EXAM Physical Exam: Alert. Oriented to time, place and person. PERRL. EOMI. CN: no focal findings. Muscle tone: normal. Muscle strength: 4/5 left hemiparesis DTR: 1+ Plantar reflex: flexor Gait: not examined in bed. Sensory exam: no abnormal findings. No cerebellar signs elicited. Review of Relevant I have reviewed the following items deborah (where applicable) has been applied. Labs Laboratory Tests Test 04/21/20 21:51 04/22/20 04:35 04/22/20 07:29 04/22/20 12:19 Glucose (Fingerstick) 173 mg/dL (70-99) 89 mg/dL (70-99) 90 mg/dL (70-99) White Blood Count 8.2 x10^3/uL (4.0-11.0) Red Blood Count 4.02 x10^6/uL (3.50-5.40) Hemoglobin 11.3 g/dL (12.0-15.5) Hematocrit 34.6 % (36.0-47.0) Mean Corpuscular Volume 86 fL (79-100) Mean Corpuscular Hemoglobin 28 pg (25-35) Mean Corpuscular Hemoglobin Concent 33 g/dL (31-37) Red Cell Distribution Width 14.9 % (11.5-14.5) Platelet Count 354 x10^3/uL (140-400) Neutrophils (%) (Auto) 60 % (31-73) Lymphocytes (%) (Auto) 25 % (24-48) Monocytes (%) (Auto) 11 % (0-9) Eosinophils (%) (Auto) 4 % (0-3) Basophils (%) (Auto) 1 % (0-3) Neutrophils # (Auto) 4.9 x10^3/uL (1.8-7.7) Lymphocytes # (Auto) 2.0 x10^3/uL (1.0-4.8) Monocytes # (Auto) 0.9 x10^3/uL (0.0-1.1) Eosinophils # (Auto) 0.3 x10^3/uL (0.0-0.7) Basophils # (Auto) 0.1 x10^3/uL (0.0-0.2) Prothrombin Time 11.8 SEC (11.7-14.0) Prothromb Time International Ratio 0.9 (0.8-1.1) Sodium Level 140 mmol/L (136-145) Potassium Level 3.5 mmol/L (3.5-5.1) Chloride Level 103 mmol/L (98-107) Carbon Dioxide Level 30 mmol/L (21-32) Anion Gap 7 (6-14) Blood Urea Nitrogen 14 mg/dL (7-20) Creatinine 0.8 mg/dL (0.6-1.0) Estimated GFR (Cockcroft-Gault) 71.5 BUN/Creatinine Ratio 18 (6-20) Glucose Level 94 mg/dL (70-99) Hemoglobin A1c 11.4 % (4.8-5.6) Calcium Level 8.5 mg/dL (8.5-10.1) Phosphorus Level 4.3 mg/dL (2.6-4.7) Magnesium Level 1.7 mg/dL (1.8-2.4) Total Bilirubin 0.2 mg/dL (0.2-1.0) Aspartate Amino Transf (AST/SGOT) 13 U/L (15-37) Alanine Aminotransferase (ALT/SGPT) 15 U/L (14-59) Alkaline Phosphatase 69 U/L (46-116) Troponin I Quantitative < 0.017 ng/mL (0.000-0.055) Total Protein 6.7 g/dL (6.4-8.2) Albumin 2.9 g/dL (3.4-5.0) Albumin/Globulin Ratio 0.8 (1.0-1.7) Triglycerides Level 135 mg/dL (0-150) Cholesterol Level 132 mg/dL (0-200) LDL Cholesterol, Calculated 37 mg/dL (0-100) VLDL Cholesterol, Calculated 27 mg/dL (0-40) Non-HDL Cholesterol Calculated 64 mg/dL (0-129) HDL Cholesterol 68 mg/dL (40-60) Cholesterol/HDL Ratio 1.9 Thyroid Stimulating Hormone (TSH) 0.762 uIU/mL (0.358-3.74) Test 04/22/20 17:20 04/22/20 20:27 04/23/20 07:29 Glucose (Fingerstick) 120 mg/dL (70-99) 149 mg/dL (70-99) 110 mg/dL (70-99) Laboratory Tests Test 04/22/20 12:19 04/22/20 17:20 04/22/20 20:27 04/23/20 07:29 Glucose (Fingerstick) 90 mg/dL (70-99) 120 mg/dL (70-99) 149 mg/dL (70-99) 110 mg/dL (70-99) Medications Current Medications Sodium Chloride 1,000 ml @ 100 mls/hr Q10H IV Last administered on 04/23/20at 08:24; Start 04/22/20 at 02:00 Heparin Sodium (Porcine) (Heparin Sodium) 5,000 unit Q8HRS SQ Last administered on 04/23/20at 06:38; Start 04/22/20 at 06:00 Labetalol HCl (Normodyne Iv Push) 10 mg PRN Q10MIN PRN IVP HYPERTENSION; Start 04/22/20 at 02:00 Atorvastatin Calcium (Lipitor) 80 mg HS PO Last administered on 04/22/20at 20:30; Start 04/22/20 at 21:00 Acetaminophen (Tylenol) 650 mg PRN Q6HRS PRN PO TEMP > 100.4F Last administered on 04/22/20at 09:20; Start 04/22/20 at 02:00 Acetaminophen (Tylenol Supp) 650 mg PRN Q4HRS PRN NV TEMP > 100.4F; Start 04/22/20 at 02:00 Magnesium Hydroxide (Milk Of Magnesia) 2,400 mg PRN DAILY PRN PO CONSTIPATION, 1st CHOICE; Start 04/22/20 at 02:00 Bisacodyl (Dulcolax Tab) 10 mg PRN DAILY PRN PO CONSTIPATION; Start 04/22/20 at 02:00 Famotidine (Pepcid) 20 mg BID PO Last administered on 04/23/20at 08:23; Start 04/22/20 at 09:00 Aspirin (Ecotrin) 325 mg DAILYWBKFT PO Last administered on 04/23/20at 08:23; Start 04/22/20 at 08:00 Aspirin (Aspirin Rectal Supp) 300 mg PRN DAILY PRN NV IF UNABLE TO TAKE PO; Start 04/22/20 at 02:00 Insulin Human Lispro (HumaLOG) 0-9 UNITS TIDACHC SQ ; Start 04/22/20 at 07:30; Stop 04/22/20 at 02:11; Status DC Dextrose (Dextrose 50%-Water Syringe) 12.5 gm PRN Q15MIN PRN IV SEE COMMENTS; Start 04/22/20 at 02:00 Alprazolam (Xanax) 0.5 mg PRN TID PRN PO ANXIETY Last administered on 04/22/20at 02:32; Start 04/22/20 at 02:00; Stop 04/22/20 at 11:09; Status DC Cyclosporine (Restasis) 1 drop BID OU Last administered on 04/23/20at 08:24; Start 04/22/20 at 09:00 Duloxetine HCl (Cymbalta) 30 mg BID PO Last administered on 04/23/20at 08:24; Start 04/22/20 at 09:00 Gabapentin (Neurontin) 200 mg TID PO Last administered on 04/22/20at 02:32; Start 04/22/20 at 09:00; Stop 04/22/20 at 11:09; Status DC Glipizide (Glucotrol) 5 mg BIDWMEALS PO Last administered on 04/23/20at 08:24; Start 04/22/20 at 08:00 Lisinopril (Prinivil) 2.5 mg DAILY PO Last administered on 04/22/20at 09:20; Start 04/22/20 at 09:00; Stop 04/22/20 at 11:10; Status DC Magnesium Oxide (Magnesium Oxide) 400 mg BID PO Last administered on 04/23/20at 08:23; Start 04/22/20 at 09:00 Multivitamins (Thera M Plus) 1 tab DAILY PO Last administered on 04/23/20 08:23; Start 04/22/20 at 09:00 Linagliptin (Tradjenta) 5 mg DAILY PO Last administered on 04/23/20at 08:23; Start 04/22/20 at 09:00 Fludrocortisone Acetate (Florinef) 0.1 mg DAILY PO Last administered on 04/23/20at 08:23; Start 04/22/20 at 09:00 Hydrocortisone (Cortef) 5 mg DAILY PO Last administered on 04/22/20at 09:21; Start 04/22/20 at 09:00; Stop 04/22/20 at 20:50; Status DC Gabapentin (Neurontin) 100 mg 1X ONCE PO Last administered on 04/22/20 02:30; Start 04/22/20 at 02:30; Stop 04/22/20 at 02:31; Status DC Acetaminophen (Tylenol) 650 mg 1X ONCE PO Last administered on 04/22/20at 02:30; Start 04/22/20 at 02:30; Stop 04/22/20 at 02:31; Status DC Alprazolam (Xanax) 0.25 mg 1X ONCE PO Last administered on 04/22/20at 02:30; Start 04/22/20 at 02:30; Stop 04/22/20 at 02:31; Status DC Gabapentin (Neurontin) 100 mg 1X ONCE PO Last administered on 04/22/20at 03:00; Start 04/22/20 at 03:00; Stop 04/22/20 at 03:01; Status DC Alprazolam (Xanax) 0.25 mg 1X ONCE PO Last administered on 04/22/20at 03:00; Start 04/22/20 at 03:00; Stop 04/22/20 at 03:01; Status DC Magnesium Sulfate 50 ml @ 25 mls/hr 1X ONCE IV Last administered on 04/22/20at 09:21; Start 04/22/20 at 08:15; Stop 04/22/20 at 10:14; Status DC Potassium Chloride (Klor-Con) 20 meq 1X ONCE PO Last administered on 04/22/20at 09:20; Start 04/22/20 at 08:15; Stop 04/22/20 at 08:16; Status DC Alprazolam (Xanax) 0.25 mg PRN DAILY PRN PO ANXIETY / AGITATION; Start 04/22/20 at 11:15 Hydrocortisone (Cortef) 15 mg DAILY PO Last administered on 04/23/20at 08:21; Start 04/23/20 at 09:00 Hydrocortisone (Cortef) 10 mg HS PO Last administered on 04/22/20at 21:19; Start 04/22/20 at 21:00 Diazepam (Valium) 10 mg 1X ONCE PO Last administered on 04/23/20at 08:31; Start 04/23/20 at 08:30; Stop 04/23/20 at 08:31; Status DC Active Scripts Active Reported Fludrocortisone Acetate 0.1 Mg Tablet 0.1 Mg PO DAILY 90 Days Hydrocortisone 5 Mg Tablet 5 Mg PO DAILY 90 Days Glipizide 5 Mg Tablet 1 Tab PO BID Magnesium (Magnesium Oxide) 400 Mg Capsule 1 Cap PO BID Lisinopril 2.5 Mg Tablet 1 Tab PO DAILY Gabapentin (Gabapentin) 100 Mg Capsule 200 Mg PO TID Cymbalta (Duloxetine Hcl) 30 Mg Capsule.dr 30 Mg PO BID Restasis (Cyclosporine) 1 Each Droperette 1 Drop EACHEYE BID [Vit D + Calcium] Daily Vitamin (Multivitamin) 1 Each Tablet 1 Each PO DAILY Metformin Hcl 1,000 Mg Tablet 1,000 Mg PO BID Januvia (Sitagliptin Phosphate) 100 Mg Tablet 100 Mg PO DAILY Midodrine Hcl 5 Mg Tablet 5 Mg PO BID [florinef] DAILY Glucagon Emergency Kit (Glucagon,Human Recombinant) 1 Mg Kit 1 Mg IJ PRN Xanax (Alprazolam) 0.5 Mg Tablet 0.5 Mg PO TID PRN PRN Vitals/I & O Vital Sign - Last 24 Hours 04/22/20 04/22/20 04/22/20 04/22/20 10:52 15:00 19:35 20:00 Temp 97.9 97.6 98.3 97.9 97.6 98.3 Pulse 84 84 87 Resp 16 16 18 B/P (MAP) 118/64 (82) 141/61 (87) 145/76 (99) Pulse Ox 93 95 94 O2 Delivery Room Air Room Air Room Air Room Air 04/22/20 04/23/20 04/23/20 23:25 03:05 07:00 Temp 97.8 97.8 98.3 97.8 97.8 98.3 Pulse 89 92 93 Resp 18 18 20 B/P (MAP) 155/74 (101) 140/67 (91) 122/69 (86) Pulse Ox 95 95 94 O2 Delivery Room Air Room Air Room Air Intake and Output 04/22/20 04/22/20 04/23/20 15:00 23:00 07:00 Intake Total 680 ml Balance 680 ml Images MRI Brain without contrast History:Left side weakness Technique: Multiplanar, multisequential noncontrast MR imaging was performed of the brain. Comparison: None available Findings: There is motion degradation. There is an approximate 7 mm AP by 3 mm transverse focus of restricted diffusion of the right paracentral gopal.Ventricular size is within normal limits. There is nizz-bi-twaxmxva supratentorial involutional change. There is minimal T2 and FLAIR hyperintense signal abnormality of the supratentorial periventricular white matter bilaterally, also moderate signal abnormality of the gopal. There is old right cerebellar lacunar infarct.There is no significant midline shift, intraaxial mass effect, or focal abnormal extra-axial fluid collection. There is preservation of the major intracranial flow-voids at the skull base. The cerebellar tonsils are normal in location. There is no significant abnormality of the pineal gland or pituitary gland. There is complete opacification of the left sphenoid sinus with heterogeneous signal characteristics also opacification of posterior left ethmoid air cells also with heterogeneous signal features and some bowing of the adjacent ruano. There is moderate patchy fluid and thickening of the left mastoid air cells, very minimally on the right.There is preserved marrow signal of the clivus. There has been lens surgery bilaterally. Impression: 1. There is acute infarct of the right gopal. 2. T2 and FLAIR hyperintense signal abnormality of the gopal and minimally of the supratentorial parenchyma is nonspecific, probably due to chronic microvascular ischemic disease. There is old right cerebellar lacunar infarct. 3. There is complete opacification of the left sphenoid sinus with heterogeneous signal features as may be seen with inspissated debris/mucous. There is also opacification of posterior left ethmoid air cells with heterogeneous signal features and some bowing of the adjacent ruano, cannot exclude underlying mass. CTA head and neck INDICATION: CT head without contrast same day TECHNIQUE: Sequential axial images through the head and neck obtained following the administration of 60 mL of Omni 350 IV contrast. Sagittal and coronal reformatted images were reconstructed from the axial data and reviewed. 3-D reformatted images were reconstructed from the axial data and reviewed. Comparisons: CT head without contrast same day FINDINGS: CTA neck: Visualized portion of thoracic aorta are unremarkable. Standard three-vessel aortic arch anatomy. Right common carotid artery is patent without evidence of stenosis, occlusion or aneurysm. Mild calcified plaque at the origin of the right internal carotid artery without significant stenosis. Left common carotid artery is patent without evidence of stenosis, occlusion or aneurysm. Minimal plaque at the origin of the left internal carotid artery without significant stenosis. Right vertebral artery is patent to basilar confluence without evidence of stenosis, occlusion or aneurysm. Left vertebral artery is patent to basilar confluence without evidence of stenosis, occlusion or aneurysm. Visualized soft tissues are unremarkable. CTA HEAD: Minimal plaque at the origin of the right internal carotid artery without significant stenosis. Right MCA is patent. Right HIRAL is patent. Minimal plaque at the cavernous segment of the left internal carotid artery without significant stenosis. Left MCA is patent. Left HIRAL is patent. Basilar artery is patent without evidence of stenosis, occlusion or aneurysm. 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 IMPRESSION: 1. No large vessel occlusion. 2. Minimal plaque at the origin of the internal carotid arteries and cavernous segments of the internal carotid arteries bilaterally without significant stenosis. Justicifation of Admission Dx: Justifications for Admission: Justification of Admission Dx: Yes AKASH CARR MD Apr 23, 2020 10:15
[2020-04-23 11:00] VITALS: BP 156/78
[2020-04-23 11:59] VITALS: BP 165/82
--- NOTE | 2020-04-23 12:01 | PDOC ---
[facility] PROGRESS NOTE Date of Service DOS: DATE: 04/23/20 TIME: 11:59 Chief Complaint Chief Complaint Gopal stroke Left-sided weakness Uncontrolled diabetes mellitus Acute encephalopathy Nima's disease Chronic cough Hypomagnesemia Moderate-severe protein calorie malnutrition History of Present Illness History of Present Illness 04/23/2020 Patient seen and examined Discussed with RN Discussed with MRI is showing a gopal stroke Awaiting further neurology input Vitals/I&O Vitals/I&O: Vital Signs Date Time Temp Pulse Resp B/P (MAP) Pulse Ox O2 Delivery O2 Flow Rate FiO2 04/23/20 11:00 98.1 91 20 156/78 (104) 94 Room Air 98.1 I & O 04/22/20 04/22/20 04/23/20 15:00 23:00 07:00 Intake Total 680 ml Balance 680 ml Physical Exam General: Alert, Cooperative, No acute distress Abdomen: Normal bowel sounds, Soft, No tenderness, No hepatosplenomegaly, No masses Extremities: No clubbing, No cyanosis, No edema, Normal pulses, No tenderness/swelling Skin: No rashes, No breakdown, No significant lesion Labs Labs: Laboratory Tests Test 04/22/20 12:19 04/22/20 17:20 04/22/20 20:27 04/23/20 07:29 Glucose (Fingerstick) 90 mg/dL (70-99) 120 mg/dL (70-99) 149 mg/dL (70-99) 110 mg/dL (70-99) Assessment and Plan Assessmemt and Plan Acute gopal stroke await further neurology input Left-sided weakness -exhibit signs and symptoms of acute right frontoparietal CVA. Will order MRI. Consult neurology. PT OT INFORMATION SECURITY ANALYST eval. ASA and high intensity statin. Goal glucose less than 140 mg/Raghav, check A1c. Control BP. Tele to observe for arrhythmia. Uncontrolled diabetes mellitus - Refuses insulin therapy. Hold metformin for recent contrast administration. Can continue glipizide. Acute encephalopathy - possibly with underlying mild cognitive impairment. 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 Medications: Current Medications Medications (Trade) Dose Ordered Sig/Erick Route PRN Reason Start Time Stop Time Status Last Admin Dose Admin Atorvastatin Calcium (Lipitor) 80 mg HS PO 04/22/20 21:00 04/22/20 20:30 Hydrocortisone (Cortef) 15 mg DAILY PO 04/23/20 09:00 04/23/20 08:21 Hydrocortisone (Cortef) 10 mg HS PO 04/22/20 21:00 04/22/20 21:19 Diazepam (Valium) 10 mg 1X ONCE PO 04/23/20 08:30 04/23/20 08:31 DC 04/23/20 08:31 Justicifation of Admission Dx: Justifications for Admission: Justification of Admission Dx: Yes NATA ONEIL III DO Apr 23, 2020 12:01
--- NOTE | 2020-04-23 12:15 | NUR ---
Post fall: Patient assisted to the bathroom. patient alert and oriented. patient pulled call light in the bathroom. Upon entering the room patient was on the bathroom floor. Patient said she slid down. Patient denies hitting her head or any injures. Vital assessed and stable. Patient assisted up and patient ambulated to bed with walker, gait belt and supervision. Bed alarm on. Fall precautions reviewed with patient and family. Dr. Trivedi notified, no orders at this time. Elizabeth, supervisor drying and softening notified. Will continue to monitor.
--- NOTE | 2020-04-23 12:44 | DS ---
DATE OF DISCHARGE: 04/23/2020 ADMISSION DIAGNOSIS: Stroke symptoms with left-sided weakness. DISCHARGE DIAGNOSES: 1. Resolving left-sided weakness with confirmed gopal stroke on MRI. 2. Diabetes. 3. Resolving encephalopathy. 4. Nima's disease. 5. Chronic cough. 6. Hypomagnesemia. 7. Malnutrition. CONSULTATIONS: Neurology. PROCEDURES: None. HOSPITAL COURSE: The patient is a pleasant middle-aged female who basically presented with stroke symptoms with left-sided weakness. She was admitted. We did physical therapy, occupational therapy, speech therapy. We consulted Neurology. There was an MRI done today, which did confirm a gopal stroke. Overall, she looks great. Today, I saw her and examined her. She wants to go home. We plan to discharge home with outpatient physical therapy and occupational therapy. DISPOSITION: Home with outpatient physical therapy. ACTIVITY: As tolerated. DIET: Low sodium. MEDICATIONS: Please see MRAD. TOTAL TIME: 32 minutes. NATA ONEIL DO DR: KRISTIN/myranda JOB#: [id number] / [id number]
--- NOTE | 2020-04-23 13:05 | NUR ---
SS following for discharge planning. SS reviewed pt chart and discussed with pt RN. Pt is from home with spouse and is currently on room air. PT/OT recommended acute rehabilitation. Pt declining acute rehabilitation at this time and requesting outpatient PT/OT at [facility]. SS phoned and faxed script and referral to [facility], ; fax [phone]. Pt's RN notified. Discharge order on the chart.
[2020-04-23 15:00] VITALS: BP 183/82
--- NOTE | 2020-04-23 15:18 | NUR ---
SS following up with discharge planning. Pt now requesting home healthcare with no preference of company. SS met with pt and family in room and rediscussed discharge planning. Pt still declining inpatient rehabilitation. Pt agreeable to [facility], ; fax [phone]. SS phoned and faxed referral to [facility]. Pt will discharge to home today. Pt's RN notified.
[2020-04-23] MEDS ORDERED: ATOR40TA59 PO (15:52)
[2020-04-23] MEDS ORDERED: ASPI325T8 PO (15:53)
[2020-04-23] MEDS ORDERED: FAMO-63 PO (15:54)
--- NOTE | 2020-04-23 18:35 | NUR ---
Nursing: Discharge teaching verbal and written. Reviewed medications, follow up, Stroke, Stroke prevention, diet, cholesterol, aspirin and heart health, ect. Red folder (stroke patient and family education) given to patient. Patient, and friend verbalized understanding. 3 new prescriptions (aspirin, Lipitor and Pepcid). Prescription for Lipitor given to patient. All belongings with patient. IV's (2) removed without complications, catheter tip in-tact. [facility] home health set up per social work. Patient refusing skilled/rehab.
--- NOTE | 2020-04-23 18:44 | NUR ---
Patient assisted off of unit via wheelchair accompanied by nurse and family
--- NOTE | 2020-04-24 08:15 | CARD ---
MR#: [id number] Date of Study: 04/23/2020 Ordering Physician: KONSTANTIN DELANEY, Referring Physician: KONSTANTIN DELANEY, Tech: Arleen Demarco APPROVED REPORT EXAM: Two-dimensional and M-mode echocardiogram with Doppler and color Doppler. Other Information Quality : AverageHR: 91bpm INDICATION CVA/TIA Echo Enhancing Agent Indication: Rule Out Septal Defect Agent/Amount Used: Agitated Saline 10mL RISK FACTORS Diabetes 2D DIMENSIONS RVDd3.3 (2.9-3.5cm)Left Atrium(2D)2.5 (1.6-4.0cm) IVSd0.9 (0.7-1.1cm)Aortic Root(2D)3.1 (2.0-3.7cm) LVDd3.7 (3.9-5.9cm)LVOT Diameter1.8 (1.8-2.4cm) PWd1.0 (0.7-1.1cm)LVDs2.1 (2.5-4.0cm) FS (%) 44.2 %SV44.1 ml LVEF(%)76.3 (>50%) Aortic Valve AoV Peak Segundo.128.7cm/sAoV VTI23.8cm AO Peak GR.6.6mmHgLVOT VTI 18.66cm AO Mean GR.3mmHg Mitral Valve MV E Zalgvpzp06.2cm/sMV DECEL TCXM625pi MV A Vjdfonjm21.7cm/sE/A Ratio0.9 TDI Lateral E' P. V8.11cm/sMedial E' P. V7.27cm/s E/Lateral E'9.0E/Medial E'10.1 Tricuspid Valve RAP [id number] Pulmonary Vein S1 Rkudiqfg94.0cm/sS2 Zgksubqn32.29cm/s D2 Blizdjhd93.3cm/sPVa [id number] LEFT VENTRICLE The left ventricle is normal size. There is normal left ventricular wall thickness. The left ventricu lar systolic function is normal and the ejection fraction is within normal range. The Ejection Fracti on is 60-65%. There is normal LV segmental wall motion. Transmitral Doppler flow pattern is Grade I-a bnormal relaxation pattern. RIGHT VENTRICLE The right ventricle is normal size. There is normal right ventricular wall thickness. The right ventr icular systolic function is normal. ATRIA The left atrium size is normal. The right atrium size is normal. The interatrial septum is intact wit h no evidence for an atrial septal defect or patent foramen ovale as noted on 2-D or Doppler imaging. Bubble study appears negative. AORTIC VALVE The aortic valve is normal in structure and function. Doppler and Color Flow revealed no significant aortic regurgitation. There is no significant aortic valvular stenosis. Calculated aortic valve area is 1.94 cm2 with maximum pressure gradient of 7 mmHg and mean pressure gradient of 4 mmHg. MITRAL VALVE The mitral valve is normal in structure and function. There is no evidence of mitral valve prolapse. There is no mitral valve stenosis. Doppler and Color-flow revealed trace mitral regurgitation. TRICUSPID VALVE The tricuspid valve is normal in structure and function. Doppler and Color Flow revealed no tricuspid valve regurgitation noted. There is no tricuspid valve stenosis. PULMONIC VALVE The pulmonic valve is not well visualized. Doppler and Color Flow revealed no pulmonic valvular regur gitation. There is no pulmonic valvular stenosis. GREAT VESSELS The aortic root is normal in size. The IVC is normal in size and collapses >50% with inspiration. PERICARDIAL EFFUSION There is no evidence of significant pericardial effusion. Critical Notification Critical Value: No <Conclusion> The left ventricular systolic function is normal and the ejection fraction is within normal range. Th e Ejection Fraction is 60-65%. There is normal LV segmental wall motion. No evidence of right to left shunting on agitated saline study. Signed by : Freddy Vicente, Electronically Approved : 04/24/2020 08:14:29
== END 2020-04-23 18:40 | disposition home health service (06) | DRG 65 ==
LOC: 2 SOUTH 21:38
PROVIDERS: ADMIT Internal Medicine; ATTEND Internal Medicine
DX: I63.81 Other cerebral infarction due to occlusion or stenosis of small artery (principal); G93.40 Encephalopathy, unspecified; E27.1 Primary adrenocortical insufficiency; E44.0 Moderate protein-calorie malnutrition; G81.94 Hemiplegia, unspecified affecting left nondominant side; E11.65 Type 2 diabetes mellitus with hyperglycemia; E83.42 Hypomagnesemia; Z79.82 Long term (current) use of aspirin; Z82.49 Family history of ischemic heart disease and other diseases of the circulatory system; Z83.3 Family history of diabetes mellitus; Z86.73 Personal history of transient ischemic attack (TIA), and cerebral infarction without residual deficits; Z79.899 Other long term (current) drug therapy; Z68.23 Body mass index [BMI] 23.0-23.9, adult; Z88.0 Allergy status to penicillin; Z88.8 Allergy status to other drugs, medicaments and biological substances
CPT/HCPCS: 36415; 70551; 80053; 80061; 82962; 83036; 83735; 84100; 84443; 84484; 85025; 85610; 93306; J1644; J3475; J7030; 92610-GN; 97116-GP; 97530-GO; 97530-GP; 97535-GO; G0378

== ENCOUNTER → 2021-03-11 | Outpatient (CLI) | payer MEDICARE, OTHER ==
[~2021-03-11] MED LIST changes: +ASPI325T8 PO; +ATOR40TA59 PO; +BARIUM SULFATE 40% (APPLE) 148 GM PWD. PO ONE; +FAMO-63 PO; +FLUD0.1T PO; +GLIP5TAB10 PO; +HYDR5TAB11 PO
--- NOTE | 2021-03-11 11:04 | RAD ---
EXAM: Video swallow evaluation. HISTORY: Difficulty swallowing. TECHNIQUE: Fluoroscopic imaging was performed in coordination with the speech pathologist during the oral administration of barium contrast of varying consistencies. A single fluoroscopic image was obta ined. Single clip images were obtained. The total fluoroscopy time was 1.8 minutes. COMPARISON: None. FINDINGS: There is a single episode of flash penetration of thin barium consistency is seen following repetitive swallowing attempts. There is minimal residual following swallowing attempts. No aspirati on or elicitation of a cough reflex was seen. IMPRESSION: Flash penetration of thin barium consistency. No aspiration is seen. Please refer to the separate report submitted by the speech pathologist for further evaluation details and clinical recom mendations. Electronically signed by: Isa Riley MD (03/11/2021 11:02 AM) [id number]
== END | disposition home or self-care (01) ==
LOC: RAD 10:00
PROVIDERS: ATTEND Physician Assistant
DX: R13.19 Other dysphagia (principal); I10 Essential (primary) hypertension; E78.00 Pure hypercholesterolemia, unspecified; E11.9 Type 2 diabetes mellitus without complications; M19.90 Unspecified osteoarthritis, unspecified site; F41.9 Anxiety disorder, unspecified; Z86.73 Personal history of transient ischemic attack (TIA), and cerebral infarction without residual deficits; Z90.49 Acquired absence of other specified parts of digestive tract; Z98.890 Other specified postprocedural states; Z79.82 Long term (current) use of aspirin; Z79.84 Long term (current) use of oral hypoglycemic drugs; Z79.899 Other long term (current) drug therapy; Z87.891 Personal history of nicotine dependence; Z88.0 Allergy status to penicillin; Z88.8 Allergy status to other drugs, medicaments and biological substances
CPT/HCPCS: 74230; 92611-GN